=== PATIENT | female | born 1955 | race Caucasian/White ===

== ENCOUNTER → 2018-02-16 | Outpatient (CLI) | payer BC ==
--- NOTE | 2018-02-16 15:44 | RAD ---
EXAM: Right foot, 3 views. HISTORY: Pain. COMPARISON: None. FINDINGS: Frontal, lateral and oblique views of the right foot are obtained. There is deformity of the tuft of the first distal phalanx, due to a chronic partially nonunited fracture. There is a small plantar spur. There is a 5 mm osseous excrescence along the lateral aspect of the lateral first metatarsal sesamoid bone, the appearance of which favors an exostosis. IMPRESSION: 1. Deformity of the tuft of the first distal femoral. Given the absence of reported pain in this location, this may be a chronic partially nonunited fracture. 2. Small plantar spur. 3. Small osseous excrescence arising from the lateral first metatarsal head sesamoid, the appearance of which favors an exostosis. Electronically signed by: Haven Jacome MD (02/16/2018 3:40 PM) [id number]
== END | disposition home or self-care (01) ==
LOC: DXRAD 15:07
PROVIDERS: ATTEND Podiatrist Foot & Ankle Surgery
DX: M77.51 Other enthesopathy of right foot and ankle (principal); M21.6X1 Other acquired deformities of right foot
CPT/HCPCS: 73630